=== PATIENT | male | born 2005 | race Caucasian/White ===

== ENCOUNTER 2024-01-12 21:09 | Emergency (ER) | payer BC ==
[2024-01-12] MEDS ORDERED: Lidocaine Viscous Sol 2% 15 ml UD Cup ONE (22:09)
[2024-01-12] MEDS ORDERED: Mag-Al 1200 mg/1200 mg/30 ML UDCUP ONE (22:09)
[2024-01-12] MEDS ORDERED: Lidocaine 10 ML, Aluminum & Magnesium Hydroxide 30 ML SSW SCH (22:30)
== END 2024-01-12 23:59 | disposition home or self-care (01) ==
LOC: CSHERS 21:09
DX: K29.70 Gastritis, unspecified, without bleeding (principal); F17.210 Nicotine dependence, cigarettes, uncomplicated
CPT/HCPCS: 99283